=== PATIENT | female | born 1950 | race Caucasian/White ===

== ENCOUNTER 2021-04-07 13:15 | Emergency (ER) | payer OTHER, MEDICARE ==
--- NOTE | 2021-04-07 15:07 | ED Physician Documentation ---
PD HPI OPHTHO - Stated complaint Stated Complaint: SWOLLEN LEFT EYE - Chief complaint Chief Complaint: Heent - History obtained from History obtained from: Patient - History of Present Illness Timing - onset: How many days ago (2) Timing - duration: Days (2) Timing - details: Gradual onset, Still present Location: Left Quality / character: Aching Associated symptoms: Redness, Swelling, Other (feeling of aching/ irritation left eye that has increased to today. No noted FB. Does not wear contacts. Has increased watering. Has swelling and some redness of the eyelid today as well. No symptoms right eye.). No: Discharge, FB sensation, Photophobia Contributing factors: No: Recent URI, FB, Wears contacts Similar symptoms before: Has not had sx before Recently seen: Not recently seen Review of Systems Constitutional: denies: Fever, Chills Nose: denies: Rhinorrhea / runny nose, Congestion Throat: denies: Sore throat Respiratory: denies: Cough PD PAST MEDICAL HISTORY - Past Medical History Past Medical History: No - Present Medications Home Medications: Ambulatory Orders Medication Instructions Recorded Confirmed Erythromycin Ophth Oint [Ilotycin 1 applic OPTH TID 3 Days #1 gm 04/07/21 Ophth Oint] Ketotifen Fumarate 3 drops LEFTEYE QID 3 Days #1 04/07/21 bottle - Living Situation Living Arrangement: reports: At home PD ED PE NORMAL - Vitals Vital signs reviewed: Yes - General General: Alert and oriented X 3, No acute distress, Well developed/nourished - HEENT HEENT: PERRL, EOMI, Pharynx benign - Neck Neck: Supple, no meningeal sign, No adenopathy PD ED PE EXPANDED - Eyes Eyes: Eyelid swelling, Eyelid erythema, Anterior chambers clear, Normal fundi, Other (IOP was 18). No: Exudate, Conj/sclera FB, Fluorescein uptake Results - Vitals Vitals: Vital Signs - 24 hr 04/07/21 04/07/21 13:51 16:02 Temperature 36 C L 36.6 C Heart Rate 78 72 Respiratory 17 18 Rate Blood Pressure 149/98 H 155/67 H O2 Saturation 98 98 Oxygen O2 Source Room air PD MEDICAL DECISION MAKING - ED course Complexity details: considered differential (presume local allergic reaction, irritation versus infection. IOP is good, so not glaucoma.), d/w patient Departure - Departure Disposition: 01 Home, Self Care Clinical Impression: Acute conjunctivitis of left eye Qualifiers: Acute conjunctivitis type: unspecified Qualified Code(s): H10.32 - Unspecified acute conjunctivitis, left eye Condition: Stable Instructions: ED Conjunctivitis Nonspecific Follow-Up: CASE VERDE MD [Primary Care Provider] - Prescriptions: Erythromycin Ophth Oint [Ilotycin Ophth Oint] 1 applic OPTH TID 3 Days #1 gm Ketotifen Fumarate 3 drops LEFTEYE QID 3 Days #1 bottle Comments: Your eye pressure is normal. It does look like either allergic reaction or infection as well. Use the ketotifen antihistamine eyedrops as directed and also the erythromycin antibiotic. I would use these over the next 3 days. I would anticipate improvement in the next day or 2 and resolution by 2 to 3 days. Recheck if not better in that timeframe and return if worsening. Discharge Date/Time: 04/07/21 16:03
[2021-04-07 16:03] VITALS: BP 155/67
== END 2021-04-07 16:03 | disposition home or self-care (01) ==
LOC: ED 13:34
DX: H10.32 Unspecified acute conjunctivitis, left eye (principal)
CPT/HCPCS: 99282; 99283

== ENCOUNTER 2023-04-30 08:00 | Outpatient (CLI) | payer MEDICARE, OTHER | END 2023-04-30 23:59 | disposition home or self-care (01) | LOC: LAB.S 08:00 | PROVIDERS: ATTEND Physician Assistant Medical | DX: N39.0 Urinary tract infection, site not specified (principal) | CPT/HCPCS: 87086; 87181 ==

== ENCOUNTER 2023-11-05 07:00 | Outpatient (CLI) | payer MEDICARE, OTHER ==
[2023-11-05 15:41] LABS: BILIRUBIN,URINE NEGATIVE (NEGATIVE); CLARITY,URINE CLEAR (CLEAR); GLUCOSE, URINE (UA) NEGATIVE (NEGATIVE); KETONES,URINE (UA) NEGATIVE (NEGATIVE); LEUKOCYTE ESTERASE, URINE SMALL (NEGATIVE); NITRITE,URINE NEGATIVE (NEGATIVE); OCCULT BLOOD,URINE NEGATIVE (NEGATIVE); PROTEIN,URINE NEGATIVE (NEGATIVE); UROBILINOGEN,URINE 0.2 (NORMAL) E.U./dL (NORMAL)
[2023-11-05 15:42] LABS: BACTERIA,URINE Rare /HPF (None Seen); RBC,URINE 0-5 /HPF (0-5); SQUAMOUS EPITHELIAL CELL,UR RARE Squamous (<= Few)
== END 2023-11-05 23:59 | disposition home or self-care (01) ==
LOC: LAB.S 07:00
PROVIDERS: ATTEND Emergency Medicine
DX: R30.0 Dysuria (principal)
CPT/HCPCS: 81001; 87086